=== PATIENT | female | born 1995 | race Caucasian/White ===

== ENCOUNTER 2018-05-17 01:51 | Emergency (ER) | payer SELFPAY ==
[2018-05-17] MEDS ORDERED: DEXAMETHASONE LIQUID 0.5 MG/5 ML 240 ML BULK BOTTLE PO ONE (02:44)
[2018-05-17] MEDS ORDERED: DEXAMETHASONE SOD PHOSPHATE 10 MG/1 ML VIAL ONE (02:54)
--- NOTE | 2018-05-17 02:59 | PDOC ---
History of Present Illness - General Chief Complaint: Allergic Reaction Stated Complaint: ALLERGIC REACTION Time Seen by Provider: 05/17/18 02:39 - History of Present Illness Initial Comments: 05/17/18 02:51 CHIEF COMPLAINT: allergic reaction HISTORY OF PRESENT ILLNESS: 22 yo F with hx of prediabetes (on Metformin) presents to ED with allergic reaction. Patient states she has been developing a rash "but only at night" for the past 3 nights. Patient states "I thought it might be a new detergent or something but I wasn't sure." Patient denies any new unusual foods or medications. Patient denies any swelling to face, tongue, lips, mouth, throat, or neck, and is speaking full sentences w/o any respiratory distress. Patient states she has taken Benadryl "which does make the rash go away, but then it comes back again at night." No recent travel or sick contacts. PAST MEDICAL HISTORY: prediabetes FAMILY HISTORY: Denies SOCIAL HISTORY: Denies tobacco, alcohol, illicit drug use. SURGICAL HISTORY: Denies ALLERGIES: No known drug allergies REVIEW OF SYSTEMS General/Constitutional: Denies fever or chills. Denies weakness, weight change. HEENT: Denies change in vision. Denies ear pain or discharge. Denies sore throat. Cardiovascular: Denies chest pain or shortness of breath. Respiratory: Denies cough, wheezing, or hemoptysis. Gastrointestinal: Denies nausea, vomiting, diarrhea or constipation. Denies rectal bleeding. Genitourinary: Denies dysuria, frequency, or change in urination. Musculoskeletal: Denies joint or muscle swelling or pain. Denies neck or back pain. Skin and breasts: Rash to shoulders tonight, rash to face last night. PHYSICAL EXAM General Appearance: Well-appearing, appropriately dressed. No apparent distress. HEENT: EOMI, PERRLA, normal ENT inspection, normal voice, TMs normal, pharynx normal. No conjunctival pallor. No photophobia, scleral icterus. Neck: Supple. Trachea midline. No tenderness, rigidity, carotid bruit, stridor , lymphadenopathy, or thyromegaly. Respiratory/Chest: Lungs CTAB. No shortness of breath, chest tenderness, respiratory distress, accessory muscle use. No crackles, rales, rhonchi, stridor , wheezing, dullness Cardiovascular: RRR. S1, S2. No JVD, murmur, bradycardia, tachycardia. Vascular Pulses: Dorsalis-Pedis (R): 2+, Dorsalis-Pedis (L): 2+ Gastrointestinal/Abdominal: Normal bowel sounds. Abdomen soft, non-distended. No tenderness or rebound tenderness. No organomegaly, pulsatile mass, guarding , hernia, hepatomegaly, splenomegaly. Lymphatic: No adenopathy, tenderness. Musculoskeletal/Extremities: Normal inspection. FROM of all extremities, normal capillary refill. Pelvis Stable. No CVA tenderness. No tenderness to extremities, pedal edema, swelling, erythema or deformity. Integumentary: Pruritic, erythematos, macular rash localized to left shoulde.r Appropriate color, dry, warm. Neurologic: dining room maid II-XII intact. Fully oriented, alert. Appropriate mood/affect. Motor strength 5/5. No appreciable EOM palsy, facial droop or sensory deficit. Past History - Past Medical History Allergies/Adverse Reactions: Allergies Allergy/AdvReac Type Severity Reaction Status Date / Time No Known Allergies Allergy Verified 05/17/18 02:26 Home Medications: Ambulatory Orders Metformin HCl [Metformin HCl ER] 1,000 mg PO DAILY 02/06/15 EPINEPHrine (EPI-PEN 0.3MG) [Epipen 0.3MG -] 0.3 mg IM ASDIR #2 pens 05/17/18 Diabetes: Yes - Immunization History Immunization Up to Date: Yes - Suicide/Smoking/Psychosocial Hx Smoking History: Never smoked Hx Alcohol Use: No Substance Use Type: None Medical Decision Making - Medical Decision Making 05/17/18 02:59 22 yo F with hx of prediabetes (on Metformin) presents to ED with allergic reaction. 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 Decadron po. Advised patient to take medication as prescribed and follow up with sensitometrist for further workup. Advised patient of signs and symptoms for return to ED. Patient verbalized understanding and agrees to plan. *DC/Admit/Observation/Transfer Diagnosis at time of Disposition: Allergic dermatitis - Discharge Dispostion Disposition: HOME Condition at time of disposition: Stable Decision to Admit order: No - Prescriptions Prescriptions: EPINEPHrine (EPI-PEN 0.3MG) [Epipen 0.3MG -] 0.3 mg IM ASDIR #2 pens - Referrals Referrals: Emmett Rapp [Primary Care Provider] - Jonatan Pittman [Non Staff, Medical] - - Patient Instructions Printed Discharge Instructions: DI for General Allergic Reactions, DI for Contact Dermatitis Additional Instructions: Please follow up with the sensitometrist to determine the cause of your rash. You may continue taking Benadryl for itching. If you develop ANY swelling to your face, neck, tongue, lips, throat, mouth, or throat, or develop difficulty swallowing, speaking, or breathing, please use the Epipen prescribed and go to the nearest ER IMMEDIATELY. - Post Discharge Activity
== END 2018-05-17 03:06 | disposition home or self-care (01) ==
LOC: JER 01:51
DX: L23.9 Allergic contact dermatitis, unspecified cause (principal); R73.03 Prediabetes; Z79.84 Long term (current) use of oral hypoglycemic drugs
CPT/HCPCS: 99281-25